=== PATIENT | male | born 1990 | race Caucasian/White ===

== ENCOUNTER 2018-04-06 19:13 | Emergency (ER) | payer SELFPAY ==
[~2018-04-06] VITALS: Ht 170.2 cm; Wt 72.0 kg
[2018-04-06 22:40] VITALS: BP 132/77
== END 2018-04-06 22:00 | disposition left against medical advice (07) ==
LOC: ER 19:13
DX: M25.512 Pain in left shoulder (principal); Z53.21 Procedure and treatment not carried out due to patient leaving prior to being seen by health care provider

== ENCOUNTER 2020-04-19 21:48 | Emergency (ER) | payer OTHER ==
[~2020-04-19] VITALS: Ht 170.2 cm; Wt 100.0 kg
[2020-04-19] MEDS ORDERED: KETOROLAC 30MG/ML VIAL IM ONE (23:00)
[2020-04-20 00:32] VITALS: BP 121/79
== END 2020-04-20 00:40 | disposition home or self-care (01) ==
LOC: ER 21:48
DX: S82.492A Other fracture of shaft of left fibula, initial encounter for closed fracture (principal); V00.131A Fall from skateboard, initial encounter; Y93.51 Activity, roller skating (inline) and skateboarding; Y92.89 Other specified places as the place of occurrence of the external cause; Y99.8 Other external cause status
CPT/HCPCS: 29515; 73610; 73630; 96372; 99284; J1885